=== PATIENT | male | born 1985 | race Caucasian/White ===

== ENCOUNTER 2025-01-08 13:44 | Outpatient (AMB) | payer OTHER, SELFPAY ==
--- NOTE | 2025-01-08 13:47 | A.OFFVIS_ITS ---
Vital Signs 01/08/25 13:50 Height 5 ft 11 in Weight 181 lb 4 oz BMI 25.3 BP 149/80 H Blood Pressure Location Rt brachial Position Sitting Pulse 41 L Pulse Source Pulse Oximeter Pulse Oximetry (%) 100 Oxygen Delivery Method Room Air Intake Visit Reasons: Lt shoulder pain Intake Note: Pain today 0/10 currently. 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 The pain has been present for three months and is described as burning, occurring primarily when pressure is applied or when lying on the shoulder. The pain originated at the left collarbone and has since radiated to the left side of the neck and armpit, occasionally extending to the biceps with a sensation similar to an electric jolt. The patient reports that the pain does not interfere with daily activities but worsens at night, reaching a severity of 6-8/10 when lying down or applying pressure on the left. He denies any recent history of injury and notes that the pain has progressively worsened over time. The patient has undergone imaging at [facility], which revealed bone spurs and osteoarthritis in the C4, C5, and C6 vertebrae. He has not yet engaged in physical therapy but has been referred for further evaluation and management. The patient has a history of psoriatic arthritis, for which he self-administers an injectable medication every two months. He does not take any other medications for pain management and has tried Tylenol without significant relief. The patient maintains an active lifestyle, working in a physically demanding job and engaging in running as exercise. - Onset: Three months ago - Quality: Burning, tingling, throbbing, radiating, sore, hurting, aching - Location: Left anterior shoulder, originates at the left collarbone, radiates to neck, armpit, left chest area and occasionally biceps - Exacerbating factors: Lying on the shoulder, applying pressure, pushing, difficulty washing back, worse at night 6-8/10 - Relieving factors: No pain during the day, 0/10; not applying pressure on left shoulder or not laying on left side - Interference: Affects sleep, particularly at night - Affect: Pain impacts sleep, causing awakening when pressure is applied - Analgesia: Currently using an injectableTremfya for psoriatic arthritis, Tylenol tried without relief - Adverse Effects: None reported from current medication - Activities of Daily Living: Pain does not interfere with daily activities or work - Aberrant Drug Related Behaviors: None reported Total SPADI Score: 19/130=14.6% [facility] Medical History (Updated 01/09/25 @ 17:58 by DELORIS Marquez) Psoriatic arthritis Nicotine dependence in remission Alcohol use disorder Seborrheic dermatitis Surgical History (Updated 01/08/25 @ 14:10 by Kiley Burgos) History of ankle surgery Social History (Updated 01/08/25 @ 13:52 by Kiley Burgos) Patient Tobacco Use Status: Former Tobacco user Review of Systems Const Details: - Musculoskeletal: Reports left shoulder pain, denies pain in the back of the shoulder - Neurological: Reports numbness in the left arm when sleeping on it, denies headaches and dizziness except when spinning in a chair - General: Denies any symptoms on the right side, fever, chills, cough, dyspnea, chest pain All systems reviewed & are unremarkable except as noted in HPI and below Card Reports as per HPI, Denies acrocyanosis, Denies chest pain at rest, Denies chest pain with activity, Denies syncope, Denies claudication, Denies lightheadedness and Denies orthopnea Neuro Denies Abnormal speech present and Denies syncope Physical Exam Vital Signs: Last Vital Signs Pulse 41 L 01/08/25 13:50 BP 149/80 H 01/08/25 13:50 Pulse Ox 100 01/08/25 13:50 Oxygen Delivery Method Room Air 01/08/25 13:50 BMI result Body Mass Index 25.3 General: Appears afebrile. Alert and oriented. Mood and affect appropriate. Follows and participates in conversation appropriately. Respiratory effort is unlabored. No cough. Able to transition from sit to stand unassisted. Ambulates with bilaterally normal heel strike and toe off. Eyes Pupils: Equal, round and reactive pupils present Neck Other: Spurling compression test equivocal. Pain is unchanged by Spurling maneuver with retraction. Elvey's tension test negative bilaterally. Lhermitte's test was negative. Patient demonstrated 5/5 motor strength of bilateral upper extremities. 2 + radial pulses. No scapular winging. Neck: Yes normal visual inspection, Yes full ROM, Yes no lymphadenopathy, Yes supple, No anterior neck swelling, Yes no JVD, No prominent supraclavicular fat pad and No prominent dorsocervical fat pad Back/Spine/Pelvis Cervical Spine: cervical ROM normal, No Lhermitte's sign positive, cervical muscular tenderness, pain with cervical ROM, No Cervical spine scars present, No Cervical spine tenderness and No step off deformity Thoracic/Lumbar Spine: thoracic and lumbar spine normal to inspection, No Thoracic/lumbar spine scar(s), thoraco-lumbar ROM normal, No paraspinal muscle tenderness and No thoraco-lumbar ROM limited Neuro General: Normal light touch and pain sensation and CN's II-XI intact bilaterally Cranial nerves: Yes Equal, round and reactive pupils present, Yes Ability to bilaterally rotate head present and Yes Ability to bilaterally elevate shoulders present Speech: No Abnormal speech present Gait exam (Neuro): Normal gait present Motor exam (neuro): 5/5 motor strength present throughout, Pronator motor function not present and no tremor noted Deep tendon reflexes (DTR's): Right triceps reflex intensity grade: 2+, Left triceps reflex intensity grade: 2+, Rt Biceps (C5, C6): 2+, Left biceps reflex intensity grade: 2+, Right brachioradialis reflex intensity grade: 2+ and Left brachioradialis reflex intensity grade: 1+ Extrem General: Yes capillary refill normal, Yes no clubbing, cyanosis or edema and Yes no calf tenderness Left upper extremity: shoulder/upper arm Details: inspection abnormal, tenderness Location: of the clavicle, of the A-C joint and over the biceps tendon and normal ROM; no ecchymosis, no crepitus, no deformity and no unsual warmth Results Reviewed Results Reviewed: Pending imaging reports from [facility] Assessment & Plan Assessment & Plan (1) Left shoulder pain: Code(s): M25.512 - Pain in left shoulder Category: Medical (2) Spondylosis of cervical spine: Code(s): M47.812 - Spondylosis without myelopathy or radiculopathy, cervical region Category: Medical (3) Neuropathy of left brachial plexus: Code(s): G54.0 - Brachial plexus disorders Category: Medical (4) Neuropathy of left brachial plexus: Code(s): G54.0 - Brachial plexus disorders Category: Medical (5) Sinus bradycardia: Code(s): R00.1 - Bradycardia, unspecified Category: Medical (6) Radiculitis of left cervical region: Code(s): M54.12 - Radiculopathy, cervical region Category: Medical Plan The patient will be referred for a brachial plexus and cervical spine MRI to further evaluate the source of the shoulder and clavicle pain with radiating neck symptoms, as the current reported xray imaging showed osteoarthritis and bone spurs in the cervical spine, which may not fully explain the symptoms. Physical therapy is recommended to address the neck and shoulder pain. 12-lead EKG will be obtained to follow up on bradycardia, with potential Cardiology referral to rule out any ischemic or conduction-related causes. The patient will be started on gabapentin at bedtime to manage neuropathic pain, side effects and precautions were discussed with patient. All questions and concerns have been answered and patient agreed with the plan. Follow up for MRI results and sooner as needed. Patient was informed and verbally consented to the use of an ambient scribe for clinic note documentation during this visit. Orders: Orders MR chest wo con 01/08/25 G54.0 - Brachial plexus disorders, M25.512 - Pain in left shoulder ECG 12 lead EKG Today R00.1 - Bradycardia, unspecified MR cervical spine wo con Today G54.0 - Brachial plexus disorders, M47.812 - Spondylosis without myelopathy or radiculopathy, cervical region, M54.12 - Radiculopathy, cervical region Medications: New gabapentin 300 mg PO BEDTIME 30 caps 0RF pain 30 days G54.0 - Brachial plexus disorders, M25.512 - Pain in left shoulder, M47.812 - Spondylosis without myelopathy or radiculopathy, cervical region Coding Level of Care Code New Pt Level 4 (85408) Diagnoses Left shoulder pain M25.512 Spondylosis of cervical spine M47.812 Neuropathy of left brachial plexus G54.0 Sinus bradycardia R00.1 Radiculitis of left cervical region M54.12
[2025-01-08 13:50] VITALS: BP 149/80; PULSE 41; O2SAT 100; BMI 25.3
--- OUTSIDE RECORDS SUMMARY | 2025-01-08 14:30 | XMS_ITS ---
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 The lesions have been present for years. He also presentsfor education and counseling about sun exposure, evaluation for suspicious growths, evaluation of current nevi, and surveillance against the recurrence of atypical nevi. His history is significant for atypical nevi. He has no history of previous skin cancer and no history of melanoma. Patient here for complete skin examination. Patient denies any new spots or areas of concern but mentions a couple changes to some previously examined moles- one on left calf & right rib cage. Medications Medication Generic Name RxNorm Strength Strength Unit Route Dose Dose Form Frequency Date Started Date Ended Status Indication Sig betamethaso ne, augmented betameth asone, augmente d 669998 0.05 % Topica l cream 09/12/19 21 suspend ed Appl y twic e frank y to affe cted area s on extr emit ies. 150 g need ed give n wide dist ribu tion of rash . fluocinolon e fluocino lone 9467798 0.01 % Topica l solut ion 08/22/19 22 suspend ed Appl y twic e frank y to scal p and bear d area for rash for up to two week s at a time . Can repe at as need ed. triamcinolo ne acetonide triamcin olone acetonid e 2368165 0.1 % Topica l cream 08/22/19 22 suspend ed Appl y twic e frank y to area s of rash on trun k and arms as need ed. Do not appl y to face . prednisone predniso ne 10 mg Oral table t suspend ed Tremfya guselkum ab [id number] 100 mg/mL Subcut aneous auto- injec tor 09/12/[address] cont ents of one auto -inj ecto r unde r the skin at star t of sameer tmen t, then agai n 4 week s late r. (sta rter dose ) Cyndy ceballoskum ab [id number] 100 mg/mL Subcut aneous auto- injec tor 10/02/[address] cont ents of one auto -inj ecto r unde r the skin ever y 8 week s ([place] nten ance dose ). Cyndy ceballoskum ab [id number] 100 mg/mL Subcut aneous auto- injec tor 03/27/[address] ents of 1 pen (100 mg) at ever y 8 week s star ting at week 4 (fallon nten ance dose ) AUGMENTED BETAMETHASO NE DIPROPIONAT E .05 % CREA NULL 05/06/20 15 active AUGMENTED BETAMETHASO NE DIPROPIONAT E .05 % CREA NULL 05/09/20 15 active AUGMENTED BETAMETHASO NE DIPROPIONAT E .05 % CREA NULL 06/03/20 15 active AUGMENTED BETAMETHASO NE DIPROPIONAT E .05 % LOTN NULL 12/21/19 15 active AUGMENTED BETAMETHASO NE DIPROPIONAT E .05 % LOTN NULL 01/04/20 15 active Betamethaso ne Dipropionat e NULL 08/22/19 11 suspend ed BETAMETHASO NE DIPROPIONAT E .05 % CREA NULL 12/21/19 15 active BETAMETHASO NE DIPROPIONAT E .05 % CREA NULL ' 01/04/20 15 suspend ed Betamethaso ne Dipropionat e Aug NULL 03/02/20 13 suspend ed Calcipotrie ne NULL 01/07/20 12 active Calcipotrie ne-Betameth Diprop NULL 07/10/19 15 active Clobetasol Propionate NULL 01/06 12 active Diprolene NULL 06/30/19 11 suspend ed Doxycycline Hyclate NULL 09/12/19 09 active DOXYCYCLINE HYCLATE 100 MG CAPS NULL 12/21/19 15 active DOXYCYCLINE HYCLATE 100 MG CAPS NULL 01/04/20 15 active DOXYCYCLINE HYCLATE 100 MG CAPS NULL 02/13/20 15 active DOXYCYCLINE HYCLATE 100 MG CAPS NULL 02/29/20 15 active Fluconazole NULL 05/08/20 14 active FLUCONAZOLE TAB 150MG NULL 14 active Humira Pen NULL 06/11/20 15 suspend ed Humira Pen-Psorias is Starter NULL 05/23 15 suspend ed HUMIRA PEN-PSORIAS IS STARTER 40 MG/0.8ML PNKT NULL 06/03/20 15 active Methotrexat e NULL 01/04/20 15 suspend ed METHOTREXAT E 2.5 MG TABS NULL 05/06/20 15 active METHOTREXAT E 2.5 MG TABS NULL 05/09/20 15 active METHOTREXAT E 2.5 MG TABS NULL 06/03/20 15 active METHOTREXAT E 2.5 MG TABS NULL 02/13/20 15 active METHOTREXAT E 2.5 MG TABS NULL 02/29/20 15 active METHOTREXAT E 2.5 MG TABS NULL 05/06/20 15 active METHOTREXAT E 2.5 MG TABS NULL 05/09/20 15 active METHOTREXAT E 2.5 MG TABS NULL 06/03/20 15 active Nizoral NULL 06/30/19 11 active Taclonex NULL 05/08/20 14 suspend ed Problems Problem Code Type Status Date of Diagnosis Da te of Resolution Psoriasis vulgaris (disorder) 221214641(SN OMED) Diagnosis active 01/08/2025 Melanocytic nevus of trunk (disorder) 325732937(SN OMED) Diagnosis active 01/08/2025 Seborrheic keratosis (disorder) 405115772(SN OMED) Diagnosis active 01/08/2025 Benign neoplasm of skin of trunk (disorder) 37468400(SNO MED) Diagnosis active 01/08/2025 Psoriasis vulgaris (disorder) 419219201(SN OMED) Diagnosis active 03/27/2024 Inflammatory dermatosis (disorder) 725159062(SN OMED) Diagnosis active 09/15/2021 Melanocytic nevus of trunk (disorder) 577804272(SN OMED) Diagnosis active 09/15/2021 Psoriasis vulgaris (disorder) 937731362(SN OMED) Diagnosis active 09/15/2021 Inflammatory dermatosis (disorder) 367736658(SN OMED) Diagnosis active 08/21/2021 Melanocytic nevus of trunk (disorder) 490034160(SN OMED) Diagnosis active 08/21/2021 Psoriasis vulgaris (disorder) 630974172(SN OMED) Diagnosis active 08/21/2021 Psoriasis vulgaris (disorder) 264159809(SN OMED) Diagnosis active 09/11/2020 Psoriasis vulgaris (disorder) 907452613(SN OMED) Diagnosis active 09/02/2015 Psoriasis vulgaris (disorder) 201515199(SN OMED) Diagnosis active 06/03/2015 Psoriasis vulgaris (disorder) 398425356(SN OMED) Diagnosis active 05/06/2015 Psoriasis (disorder) 1299547(SNOM ED) Diagnosis active 12/20/2014 Psoriasis (disorder) 9080909(SNOM ED) Diagnosis active 07/10/2014 Psoriasis (disorder) 3911859(SNOM ED) Diagnosis active 05/08/2014 Arthritis (disorder) 1239716(SNOM ED) Problem active Psoriasis (disorder) 4032659(SNOM ED) Problem active Osteophyte of left shoulder (disorder) 217090692537 104(SNOMED) Problem active Results No data Encounters Service provided at [address], [place], [place] [id number]. Office phonenumber is [phone]. Office fax number is [phone]. Encounter Diagnosis Location Date / Time Type Psoriasis (L40.0)Benign Nevi (D22.5)Seborrheic Keratoses (L82.1)Benign Skin Exam (D23.5) [facility] 01/08/2025 15:30:00 [facility] [id number] Reason For Referral I saw Rober Lees in the office on January 08, 2025.Below is a summary of our visit:Psoriasis: clear skin today.Plan: Counseling, Tremfya Monitoring, Prescription, and Prescription Medication Management.Benign Nevi: regular, symmetrical, evenly-colored macules and papules and specifically:- softbrown papule with globular pigment right flank- oval soft light oyung papule with slightly cobblestoned surface on central upper back located on the trunk.Plan: Reassurance and Photo-Documentation.Seborrheic Keratoses: relatively sparse, with stuck-on thin brown papules distributed on the left proximal medial calf and right lateral forehead.Plan: Counseling, Reassurance, and Pointed Out by Patient.Benign Skin Exam: angiomas, benign nevi, seborrheic keratoses, and lentigines located on the trunk.Plan: Reassurance and Sunscreen Recommendations.My impression and plan was the followin.PsoriasisCo unselingTremfya Monitoring: Length of Therapy - 9 months; Initial Quantiferon Gold - 03/30/24 - negative.Prescription: Tremfya 100 mg/mL subcutaneous auto- injector SCPrescription Medication Management: Continue Regimen - :- betamethasone- Tremfya;.2.Benign NeviReassurancePhoto-Documentation:.3.Sebor rheic KeratosesCounselingReassurancePointed Out by Patient4.Benign Skin ExamReassuranceSunscreen Recommendations Procedures Procedure Date Documentation of current medications (pr ocedure) 03/28/2024 12:00 am [facility] Shave biopsy (procedure) 08/21/2021 12:0 0 am [facility] Documentation of past medical history (p rocedure) Documentation of past medical history (p rocedure) Documentation of past medical history (p rocedure) Documentation of past medical history (p rocedure) Documentation of past medical history (p rocedure) Documentation of past medica l history (procedure) Broken ankle and heel. Appendectomy. Review Of Systems Provider reviewed on Jan 08, 2025.A complete review of systems was performed.No Problems With Healing, No Problems With Scarring (hypertrophic Or Keloid), No Problems With Bleeding, No Immunosuppression, No Hay Fever, No Chest Pain, No Fever Or Chills, No Night Sweats, No Unintentional Weight Loss,No Thyroid Problems, No Sore Throat, No Blurry Vision, No Abdominal Pain, No Bloody Stool, No Bloody Urine, No Joint Aches, No Muscle Weakness, No Neck Stiffness, No Headaches, No Seizures, No Shortness Of Breath, No Wheezing, No Anxiety, And No Depression. Assessment 1.PsoriasisCounselingTremfya Monitoring: Length of Therapy - 9 months; Initial Quantiferon Gold - 03/30/24 - negative.Prescription: Tremfya 100 mg/mL subcutaneous auto-injector SCPrescription Medication Management: Continue Regimen - :- betamethasone- Tremfya;.2.Benign NeviReassurancePhoto-Documenta tion:.3.Seborrheic KeratosesCounselingReassurancePointed Out by Patient4.Benign Skin ExamReassuranceSunscreen Recommendations Plan of Care Future visit for 01/08/2026 - Follow up in 1 year for: Skin Check - 15 minutes Code Detail Instructions [id number] Tremfya 100 mg/mL mendoza bcutaneous auto-injector Inject contents of 1 pen (100 mg) at every 8 weeks starting at week 4 (maintenance dose) Tremfya 100 mg/mL mendoza bcutaneous auto-injector Inject contents of 1 pen (100 mg) at every 8 weeks starting at week 4 (maintenance dose) Tremfya 100 mg/mL mendoza bcutaneous auto-injector Inject contents of 1 pen (100 mg) under the skin every 8 weeks (maintenance dose) Tremfya 100 mg/mL mendoza bcutaneous auto-injector Inject contents of one auto-injector under the skin at start of treatment, then again 4 weeks later (starter dose). Tremfya 100 mg/mL mendoza bcutaneous auto-injector Inject contents of one auto-injector under the skin every 8 weeks (Maintenance dose). Tremfya 100 mg/mL mendoza bcutaneous auto-injector Inject contents of one auto-injector under the skin at start of treatment, then again 4 weeks later (starter dose). [id number] betamethasone, augme nted 0.05 % topical cream Apply twice daily to affected areas on extremities. 150 g needed given wide distribution of rash. Tremfya 100 mg/mL mendoza bcutaneous auto-injector Inject contents of one auto-injector under the skin at start of treatment, then again 4 weeks later (starter dose). [id number] Tremfya 100 mg/mL mendoza bcutaneous auto-injector Inject contents of one auto-injector under the skin at start of treatment, then again 4 weeks later (starter dose). [id number] Tremfya 100 mg/mL mendoza bcutaneous auto-injector Inject contents of one auto-injector under the skin every 8 weeks (Maintenance dose). [id number] fluocinolone 0.01 % topical solu tion Apply twice daily to scalp and ugerin area for rash for up to two weeks at a time. Can repeat as needed. [id number] triamcinolone aceton bill 0.1 % topical cream Apply twice daily to areas of rash on trunk and arms as needed. Do not apply to face. [id number] Tremfya 100 mg/mL mendoza bcutaneous auto-injector Inject contents of one auto-injector under the skin at start of treatment, then again 4 weeks later. (starter dose) [id number] Tremfya 100 mg/mL mendoza bcutaneous auto-injector Inject contents of one auto-injector under the skin every 8 weeks (after initial injections one month apart). Maintenance dose. [id number] betamethasone, augme nted 0.05 % topical cream Apply twice daily to affected areas on extremities. 150 g needed given wide distribution of rash. Instructions * I counseled the patient regarding the following:Patient has been experiencing worsening joint pain.Xray showed bone spurs, but he is going for MRI next week. If any psoriatic arthritis is seen, he should see a content producer to discuss alternative treatments.He was previously on Tremfya but stopped after his skin cleared; now he is back on Tremfya (9 months) and feels it is working veryw ell. * I counseled the patient regarding the following:Seborrheic Keratoses are benign growths that often run in families. Patients get more of them as they get older. Social History Code Activity Start Date End Date [id number] (SNOMED) Former smoker 08/11/2021 Sex male Sexual orientation Unspecified Gender identity Unspecified Vital Signs No data
== END 2025-01-08 14:14 | disposition home or self-care (01) ==
LOC: HO.PMC 13:44
PROVIDERS: PCP Physician Assistant Medical; Referring Provider Physician Assistant Medical; Visit Provider Nurse Practitioner Family
DX: M25.512 Pain in left shoulder (principal); M47.812 Spondylosis without myelopathy or radiculopathy, cervical region; R00.1 Bradycardia, unspecified; M54.12 Radiculopathy, cervical region
CPT/HCPCS: 99204

== ENCOUNTER 2025-02-15 09:59 | Outpatient (AMB) | payer OTHER, SELFPAY ==
--- NOTE | 2025-02-15 10:13 | MHC.OFFVIS ---
Vital Signs 02/15/25 10:14 Height 5 ft 11 in Weight 184 lb BMI 25.7 BP 135/77 Blood Pressure Location Lt brachial Position Sitting Respiration 16 Pulse 54 Pulse Source Pulse Oximeter Pulse Oximetry (%) 98 Oxygen Delivery Method Room Air Intake Visit Reasons: MRI follow up [employer] Required: No Allergies No Known Allergies Allergy (Verified 02/15/25 10:15) Medication List - Last Reconciled 02/15/25 by Elissa Funez LPN guselkumab (Tremfya) 100 mg subcut Q8W valacyclovir 2,000 mg PO BID HPI Comments Details: The patient is a 39-year-old male presenting to discuss MRI of cervical spine and left brachial plexus. The MRI of the neck revealed multilevel cervical spondylosis, particularly affecting the C4 to C6 levels, with mild spinal stenosis noted at C4-C5 and severe narrowing of the left foramen at C5-C6. Additionally, there is a small disc protrusion at C4-C5, which is contributing to the patient's symptoms. He is interested in therapeutic epidural steroid injection prior to Neurosurgical evaluation. He continues to endorce neck pain with left sided radiculopathy, worse during nighttime if he sleeps on the left side. The patient reports a history of rheumatoid arthritis for approximately 20 years, which has progressed over time. He is an avid runner, covering 20 to 30 miles a week, and has been evaluated by cardiology, who found no concerns with his heart rate, attributing it to his athletic lifestyle. The patient denies any history of diabetes. - Pain is primarily located in the neck, exacerbated by pressure, particularly when lying on the left side. - Pain interrupts sleep, causing the patient to wake up when pressure is applied to the affected side. - Pain is relieved when pressure is removed, allowing the patient to function normally during the day. - Affect: Pain impacts sleep but not significantly daily activities. - Analgesia: Gabapentin trial was considered, but not started due to potential side effects per patient; pain is managed by avoiding pressure on the affected side. - Adverse Effects: None reported. - Activities of Daily Living: Pain does not interfere with daily activities, only affects sleep when lying on the left side. - Aberrant Drug Related Behaviors: None reported. PRIOR: The patient is a 39-year-old male presenting with left shoulder pain. The pain has been present for three months and is described as burning, occurring primarily when pressure is applied or when lying on the shoulder. The pain originated at the left collarbone and has since radiated to the left side of the neck and armpit, occasionally extending to the biceps with a sensation similar to an electric jolt. The patient reports that the pain does not interfere with daily activities but worsens at night, reaching a severity of 6-8/10 when lying down or applying pressure on the left. He denies any recent history of injury and notes that the pain has progressively worsened over time. The patient has undergone imaging at [facility], which revealed bone spurs and osteoarthritis in the C4, C5, and C6 vertebrae. He has not yet engaged in physical therapy but has been referred for further evaluation and management. The patient has a history of psoriatic arthritis, for which he self-administers an injectable medication every two months. He does not take any other medications for pain management and has tried Tylenol without significant relief. The patient maintains an active lifestyle, working in a physically demanding job and engaging in running as exercise. - Onset: Three months ago - Quality: Burning, tingling, throbbing, radiating, sore, hurting, aching - Location: Left anterior shoulder, originates at the left collarbone, radiates to neck, armpit, left chest area and occasionally biceps - Exacerbating factors: Lying on the shoulder, applying pressure, pushing, difficulty washing back, worse at night 6-8/10 - Relieving factors: No pain during the day, 0/10; not applying pressure on left shoulder or not laying on left side - Interference: Affects sleep, particularly at night - Affect: Pain impacts sleep, causing awakening when pressure is applied - Analgesia: Currently using an injectableTremfya for psoriatic arthritis, Tylenol tried without relief - Adverse Effects: None reported from current medication - Activities of Daily Living: Pain does not interfere with daily activities or work - Aberrant Drug Related Behaviors: None reported Total SPADI Score: 19/130=14.6% [facility] Medical History Psoriatic arthritis Nicotine dependence in remission Alcohol use disorder Seborrheic dermatitis Surgical History History of ankle surgery Social History (Reviewed 02/15/25 @ 10:14 by ASHLEE Marquez Patient Tobacco Use Status: Former Tobacco user Review of Systems Const Details: - Cardiovascular: Denies any abnormalities, low heart rate attributed to running. - Musculoskeletal: Reports neck pain exacerbated by pressure, denies pain during daily activities. - Neurological: Reports pain-induced sleep disturbances, denies daytime neurological symptoms. All systems reviewed & are unremarkable except as noted in HPI and below Neuro Denies Abnormal speech present Physical Exam General: Appears afebrile. Alert and oriented. Mood and affect appropriate. Follows and participates in conversation appropriately. Respiratory effort is unlabored. No cough. Able to transition from sit to stand unassisted. Ambulates with bilaterally normal heel strike and toe off. Eyes Pupils: Equal, round and reactive pupils present Neck Other: Spurling compression test is equivocal. Elvey's tension test positive on the left. Lhermitte's test was negative. Patient demonstrated 5/5 motor strength of bilateral upper extremities. 2 + radial pulses. Neck: Yes normal visual inspection, Yes full ROM, Yes no lymphadenopathy, Yes supple, No anterior neck swelling, Yes no JVD, No prominent supraclavicular fat pad and No prominent dorsocervical fat pad Back/Spine/Pelvis Cervical Spine: cervical ROM normal, No Lhermitte's sign positive, cervical muscular tenderness, pain with cervical ROM, No Cervical spine scars present, No Cervical spine tenderness and No step off deformity Thoracic/Lumbar Spine: thoracic and lumbar spine normal to inspection, No Thoracic/lumbar spine scar(s), thoraco-lumbar ROM normal, No paraspinal muscle tenderness and No thoraco-lumbar ROM limited Neuro General: Normal light touch and pain sensation and CN's II-XI intact bilaterally Cranial nerves: Yes Equal, round and reactive pupils present, Yes Ability to bilaterally rotate head present and Yes Ability to bilaterally elevate shoulders present Speech: No Abnormal speech present Gait exam (Neuro): Normal gait present Motor exam (neuro): 5/5 motor strength present throughout, Pronator motor function not present and no tremor noted Deep tendon reflexes (DTR's): Right triceps reflex intensity grade: 2+, Left triceps reflex intensity grade: 2+, Rt Biceps (C5, C6): 2+, Left biceps reflex intensity grade: 2+, Right brachioradialis reflex intensity grade: 2+ and Left brachioradialis reflex intensity grade: 1+ Extrem General: Yes capillary refill normal, Yes no clubbing, cyanosis or edema and Yes no calf tenderness Left upper extremity: shoulder/upper arm Details: inspection abnormal, tenderness Location: of the clavicle, of the A-C joint and over the biceps tendon and normal ROM; no ecchymosis, no crepitus, no deformity and no unsual warmth Results Reviewed Results Reviewed: MR LEFT MRI BRACHIAL PLEXUS W/O CONTRAST 01/16/25 RAYUS INDICATION: Left shoulder pain. Brachial plexus disorder. TECHNIQUE: Multi planar, multisequence MR imaging of the left brachial plexus was performed emphasizing short and long TR/TE information without intravenous contrast. COMPARISON: None. FINDINGS: Evaluation of the brachial plexus is slightly compromised by lack of intravenous contrast. There is normal signal, morphology, and course of the side brachial plexus, from the cervical spine distally into the left axilla. There is no mass, inflammation, or fluid collection about the course of the brachial plexus. The anterior and middle scalene muscles demonstrate normal signal and morphology without hypertrophy. There is no abnormality of the the subclavian artery within the scalene triangle nor distally as well as the anteriorly coursing subclavian vein. Both vessels demonstrate normal caliber. The side axilla is clear, and there is no lymph node enlargement. Bone marrow signal is within normal limits, and no focal osseous lesion is identified. No abnormality of the left clavicle. Limited evaluation throughout the remainder of the visualized chest is unremarkable. IMPRESSION: No definite abnormality identified. Consider MRI cervical spine for further evaluation as clinically indicated. MR CERVICAL SPINE WITHOUT CONTRAST 01/16/25 RAYUS INDICATION: Neck pain, cervical spondylosis without myelopathy TECHNIQUE: Standard cervical spine protocol without contrast COMPARISON: None. FINDINGS: Vertebral bodies demonstrate normal height, signal intensity and alignment. Craniocervical junction is preserved. There is homogeneous signal within the cervical cord without evidence for myelomalacia. C1-C3: No significant abnormalities are seen. C3-C4 level shows focal central disc bulge. The canal and foramina are patent. C4-C5 level demonstrates shallow central disc protrusion and mild disc degeneration. The disc has slightly extruded caudally contacting the thecal sac without cord compression seen. There is mild narrowing of the canal. Mild right-sided foraminal stenosis is also present due to uncovertebral hypertrophy. The left foramen is patent. C5-C6 level shows left paracentral and foraminal disc protrusion, uncovertebral spurring, contacting the ventral aspect of the cord and encroaching over the left exiting C6 nerve root. There is mild to moderate narrowing of the canal and severe narrowing of the left foramen. The right foramen is patent. C6-C7, and C7-T1 levels are unremarkable. IMPRESSION: Multilevel changes of cervical spondylosis, most pronounced at C4-C5 and C5-C6 levels, as detailed at individual levels above. Assessment & Plan Assessment & Plan (1) Cervical spondylosis: Code(s): M47.812 - Spondylosis without myelopathy or radiculopathy, cervical region Category: Medical (2) Radiculitis of left cervical region: Code(s): M54.12 - Radiculopathy, cervical region Category: Medical (3) Cervical spinal stenosis: Code(s): M48.02 - Spinal stenosis, cervical region Category: Medical Plan The plan includes scheduling an epidural steroid injection at the C5-C6 level to alleviate the central and foraminal compression and associated symptoms. If the injection provides significant relief, injection might be repeated after 3 months, but if symptoms persist, a referral to a Neurosurgeon will be considered. Schedule Left C5-C6 parasagittal interlaminar TELMA with local and fluoroscopy. Expectations, risks and benefits were reviewed. Patient is aware he will be contacted to schedule this procedure. All questions and concerns have been answered and patient agreed with the treatment plan. Follow up for and sooner as needed. Patient was informed and verbally consented to the use of an ambient scribe for clinic note documentation during this visit. Coding Level of Care Code Est Pt Level 4 (36069) Complex EM visit Add On G2211 Diagnoses Cervical spondylosis M47.812 Radiculitis of left cervical region M54.12 Cervical spinal stenosis M48.02
[2025-02-15 10:14] VITALS: BP 135/77; PULSE 54; RESP 16; O2SAT 98; BMI 25.7
== END 2025-02-15 10:31 | disposition home or self-care (01) ==
LOC: HO.PMC 10:00
PROVIDERS: PCP Physician Assistant Medical; Visit Provider Nurse Practitioner Family
DX: M47.812 Spondylosis without myelopathy or radiculopathy, cervical region (principal); M54.12 Radiculopathy, cervical region; M48.02 Spinal stenosis, cervical region
CPT/HCPCS: 99214; G2211

== ENCOUNTER → 2025-02-15 09:59 | Outpatient (BNVA) | payer OTHER, SELFPAY | PROVIDERS: PCP Physician Assistant Medical; Visit Provider Nurse Practitioner Family | DX: M54.12 Radiculopathy, cervical region (principal); M47.812 Spondylosis without myelopathy or radiculopathy, cervical region; M48.02 Spinal stenosis, cervical region; Z87.891 Personal history of nicotine dependence; Z13.89 Encounter for screening for other disorder ==